=== PATIENT | female | born 1940 | race Two or more races ===

== ENCOUNTER 2018-09-12 20:59 | Emergency (ER) | payer OTHER ==
[~2018-09-12] VITALS: Ht 157.5 cm; Wt 68.0 kg
[2018-09-12] MEDS ORDERED: LIPITOR40 MG (21:21)
[2018-09-12] MEDS ORDERED: ASA81 MG (21:21)
[2018-09-12] MEDS ORDERED: SYNTHROID50 MCG (21:21)
== END 2018-09-12 22:13 | disposition home or self-care (01) ==
LOC: ER 20:59
DX: H60.8X2 Other otitis externa, left ear (principal)